=== PATIENT | female | born 1985 | race Asian ===

== ENCOUNTER 2017-12-12 03:15 | Emergency (ER) | payer OTHER ==
[~2017-12-12] VITALS: Ht 165.1 cm; Wt 71.2 kg
[2017-12-12 03:32] VITALS: BP_SYST 158
[2017-12-12] MEDS ORDERED: DIPH-TET-PERTUS Vaccine 0.5 ML VIAL (ADACEL) I.M. ONE (03:45)
[2017-12-12 04:39] VITALS: BP_SYST 144
== END 2017-12-12 04:39 | disposition home or self-care (01) ==
LOC: SED 03:15
DX: S40.811A Abrasion of right upper arm, initial encounter (principal); S40.812A Abrasion of left upper arm, initial encounter; W50.4XXA Accidental scratch by another person, initial encounter; Y93.89 Activity, other specified; Y92.89 Other specified places as the place of occurrence of the external cause; Y99.8 Other external cause status
CPT/HCPCS: 90715; 99283

== ENCOUNTER 2018-02-18 20:32 | Emergency (ER) | payer OTHER ==
[~2018-02-18] VITALS: Ht 170.2 cm; Wt 70.3 kg
[2018-02-18 20:35] VITALS: BP_SYST 164
--- NOTE | 2018-02-18 20:40 | NUR ---
Patient triaged and placed in waiting room. VSS and patient appears in no acute distress at this time. Accompanied by self, awaiting available bed, and MD notified of need for MSE.
--- NOTE | 2018-02-18 21:21 | NUR ---
Pt ambulatory to bed 6 for evaluation
--- NOTE | 2018-02-18 21:30 | NUR ---
Awake, alert. Pt states she had been having headache since last thursday when she inhaled something from a dumpster. Th pain was from the top of her head to her waist, 7/10 in pain scale.
--- NOTE | 2018-02-18 21:45 | NUR ---
ER at bedside examining patient.
[2018-02-18 22:10] LABS: BASOPHILS # (AUTO) 0.1 K/uL (0.0-0.2); BASOPHILS % (AUTO) 0.7 % (0.0-2.0); EOSINOPHILS % (AUTO) 0.3 % (0.0-4.0); HEMATOCRIT 30.6 % (36-48); HEMOGLOBIN 9.4 g/dL (12.0-16.0); LYMPHOCYTES # (AUTO) 2.4 K/uL (1.0-5.5); LYMPHOCYTES % (AUTO) 28.3 % (20.5-51.5); MEAN CORPUSCULAR HEMOGLOBIN 21 pg (27-31); MEAN CORPUSCULAR HGB CONC 31 % (32-36); MEAN CORPUSCULAR VOLUME 70 fL (79.0-98.0); MONOCYTES # (AUTO) 0.5 K/uL (0.0-1.0); MONOCYTES % (AUTO) 5.5 % (1.7-9.3); NEUTROPHILS # (AUTO) 5.6 K/uL (1.8-7.7); NEUTROPHILS % (AUTO) 65.2 % (40.0-70.0); PLATELET COUNT (AUTO) 321 K/uL (130-430); RED BLOOD CELL COUNT(AUTO) 4.38 MIL/uL (4.2-6.2); RED CELL DISTRIBUTION WIDTH 15.9 % (9.0-15.0); WHITE BLOOD COUNT (AUTO) 8.6 K/uL (4.8-10.8)
[2018-02-18 22:26] LABS: CALCIUM 9.3 mg/dL (8.4-11.0); CREATININE 0.72 mg/dL (0.55-1.30)
[2018-02-18 22:33] LABS: ALBUMIN 3.7 g/dL (3.4-4.8); TOTAL BILIRUBIN 0.5 mg/dL (0.0-1.0)
[2018-02-18] MEDS: NACL 0.9% 1,000 ML IV ONE (22:38)
[2018-02-18] MEDS: PROCHLORPERAZINE EDISYLATE 10 MG/2 ML VIAL IVP ONE (22:39)
--- NOTE | 2018-02-19 | NUR ---
Slept intermittently. No distress noted. at bedside.
[2018-02-19] MEDS: DIPHENHYDRAMINE INJ 50 MG/ML VIAL IVP ONE (01:28)
[2018-02-19] MEDS: PROCHLORPERAZINE EDISYLATE 10 MG/2 ML VIAL IVP ONE (01:29)
[2018-02-19] MEDS: ACETAMINOPHEN 325 MG TABLET PO ONE (01:30)
--- NOTE | 2018-02-19 02:35 | NUR ---
Patient given written and verbal discharge instructions and verbalizes understanding. ER Dr Sonia GAUTAM discussed with patient the results and treatment provided. Patient in stable condition. ID arm band removed. IV catheter removed intact and dressing applied, no active bleeding. Rx of Zofran given. Patient educated on pain management and to follow up with PMD. Pain Scale . Opportunity for questions provided and answered. Medication side effect fact sheet provided.
[2018-02-19 02:45] VITALS: BP_SYST 164
[2018-02-19 04:22] LABS: CLARITY/URINE SLIGHTLY HAZY (CLEAR); COLOR,URINE YELLOW (YELLOW); PH,URINE 7.5 (5.0-8.0)
[2018-02-19 04:23] LABS: BILIRUBIN,URINE NEGATIVE (NEGATIVE); BLOOD, URINE NEGATIVE (NEGATIVE); GLUCOSE,URINE NEGATIVE (NEGATIVE); KETONES,URINE NEGATIVE (NEGATIVE); LEUKOCYTE ESTERASE ,URINE 3+ (NEGATIVE); NITRITE, URINE NEGATIVE (NEGATIVE); PROTEIN URINE NEGATIVE (NEGATIVE); UROBILINOGEN,URINE 0.2 (0.2-1.0)
[2018-02-19 04:32] LABS: BACTERIA,URINE FEW /HPF (None Seen); RBC,URINE 0-3 /HPF (0-3); URINE AMORPHOUS PHOSPHATES 2+ /HPF (None Seen)
== END 2018-02-19 02:45 | disposition home or self-care (01) ==
LOC: SED 20:32
DX: R51 Headache (principal); R11.10 Vomiting, unspecified; R06.02 Shortness of breath; R03.0 Elevated blood-pressure reading, without diagnosis of hypertension; Z86.2 Personal history of diseases of the blood and blood-forming organs and certain disorders involving the immune mechanism
CPT/HCPCS: 36415; 80053; 81000; 85025; 87086; 96361; 96374; 96375; 96376; 99284; J0780 ×2; J1200; J7030